=== PATIENT | male | born 1985 | race Caucasian/White ===

== ENCOUNTER → 2020-07-11 11:55 | Outpatient (BNVA) | payer BC, SELFPAY | PROVIDERS: Family Provider Family Medicine; Visit Provider Nurse Practitioner | DX: S60.221A Contusion of right hand, initial encounter (principal); W01.0XXA Fall on same level from slipping, tripping and stumbling without subsequent striking against object, initial encounter | CPT/HCPCS: 73130 ==

== ENCOUNTER 2024-12-21 12:10 | Emergency (ER) | payer OTHER, SELFPAY ==
[2024-12-21] VITALS (9 sets, daily range): BP systolic 160; BP diastolic 105; PULSE 73–84; RESP 13–18; TEMP 36.7; O2SAT 92–98
--- NOTE | 2024-12-21 12:24 | ECG_ITS ---
[facility] Test Date: 2024-12-21 Pat Name: Hank Lamar Department: Room: Gender: Male [employer]: : 1985 Requested By: Syeda Horn Order Number: [id number] Reading MD: JACQUELINE DORSEY Measurements Intervals [place] Rate: 74 P: 21 WI: 159 QRS: 93 QRSD: 98 T: -11 QT: 358 QTc: 398 Interpretive Statements SINUS RHYTHM BORDERLINE RIGHT AXIS DEVIATION [QRS AXIS > 90] LOW QRS VOLTAGE IN PRECORDIAL LEADS [QRS DEFLECTION < 1.0 mV IN CHEST LEADS] NONSPECIFIC T-WAVE ABNORMALITY No previous ECG available for comparison Electronically Signed On 12-23-2024 23:37:33 PATIENT FINANCIAL REPRESENTATIVE by JACQUELINE DORSEY [email or web address]
--- NOTE | 2024-12-21 12:55 | CTR_ITS ---
PROCEDURE INFORMATION: Exam: CTA Chest With Contrast Exam date and time: 12/21/2024 1:26 PM Age: 39 years old Clinical indication: Abdominal pain; Generalized; Chest pressure; Additional info: Chest pain h/o pe, abdominal pain, gi bleeding TECHNIQUE: Imaging protocol: Computed tomographic angiography of the chest with contrast. Exam focused on the arteries. 3D rendering (Not supervised by radiologist): MIP and/or 3D reconstructed images were created by the technologist. Total images: 1634 Radiation optimization: All CT scans at this facility use at least one of these dose optimization techniques: automated exposure control; mA and/or kV adjustment per patient size (includes targeted exams where dose is matched to clinical indication); or iterative reconstruction. Contrast material: OMNIPAQUE 350; Contrast volume: 100 ml; Contrast route: INTRAVENOUS (IV); COMPARISON: No relevant prior studies available. RADIATION DOSE METRICS: Total DLP (mGy-cm): 1616.19 FINDINGS: Pulmonary arteries: Pulmonary artery evaluation of good technical quality with no pulmonary artery embolism identified. Aorta: Unremarkable. No aortic aneurysm. No aortic dissection. Lungs: Trace atelectasis or scar noted in the right lung base. 5 mm nodule posteriorly at the left lung base series 5, image 41. Pleural spaces: Unremarkable. No pneumothorax. No pleural effusion. Heart: Unremarkable. No cardiomegaly. No pericardial effusion. Lymph nodes: Unremarkable. No enlarged lymph nodes. Bones/joints: Unremarkable. No acute fracture. Soft tissues: There is nonspecific gynecomastia. CT Chest at 12 months. (Reference: [place]) REFERENCES: Josehocarmelo Jain, et al. Guidelines for Management of Incidental Pulmonary Nodules Detected on CT Images: From the Fleischner Society 2017. Radiology. 2017;284(1):228-243. PROCEDURE INFORMATION: Exam: CT Abdomen And Pelvis With Contrast Exam date and time: 12/21/2024 1:26 PM Age: 39 years old Clinical indication: Abdominal pain; Generalized; Chest pressure; Additional info: Chest pain h/o pe, abdominal pain, gi bleeding TECHNIQUE: Imaging protocol: Computed tomography of the abdomen and pelvis with contrast. Radiation optimization: All CT scans at this facility use at least one of these dose optimization techniques: automated exposure control; mA and/or kV adjustment per patient size (includes targeted exams where dose is matched to clinical indication); or iterative reconstruction. Contrast material: OMNIPAQUE 350; Contrast volume: 100 ml; Contrast route: INTRAVENOUS (IV); COMPARISON: No relevant prior studies available. RADIATION DOSE METRICS: Total DLP (mGy-cm): 1616.19 FINDINGS: Liver: Hepatic steatosis is evident. Gallbladder and biliary ducts: Normal. No calcified stones. No ductal dilation. Pancreas: Normal. No ductal dilation. Spleen: Normal. No splenomegaly. Adrenal glands: Normal. No mass. Kidneys and ureters: Normal. No hydronephrosis. Stomach and bowel: Unremarkable. No obstruction. No mucosal thickening. Appendix: No evidence of appendicitis. Intraperitoneal space: Unremarkable. No free air. No significant fluid collection. Vasculature: Incidental phleboliths noted. Lymph nodes: Unremarkable. No enlarged lymph nodes. Urinary bladder: Unremarkable as visualized. Reproductive: Unremarkable as visualized. Bones/joints: Unremarkable. No acute fracture. Soft tissues: Unremarkable. CT/CT angio chest w abd pel w con IMPRESSION: 1. No pulmonary artery embolism identified. 2. Trace atelectasis or scar noted in the right lung base. 3. 5 mm nodule posteriorly at the left lung base series 5, image 41. For patients at low risk (minimal or absent history of smoking and of other known risk factors), no routine follow-up is indicated. For patients at high risk (history of smoking or of other known risk factors), consider optional IMPRESSION: No active GI bleed.
[2024-12-21 13:23] LABS: Basophils % 0.6 %; Eosinophils # 0.1 10^3/uL (0.0-0.8); Eosinophils % 1.9 %; Hematocrit 46.5 % (37-53); Lymphocytes # 2.1 10^3/uL (0.8-4.8); Lymphocytes % 33.3 %; Mean Corpuscular HGB Conc 33.8 g/dL (30-55); Mean Corpuscular Hemoglobin 29.6 pg (27-33); Mean Corpuscular Volume 87.6 fl (82-101); Mean Platelet Volume 10.2 fL (7.4-10.4); Monocytes # 0.6 10^3/uL (0.2-0.9); Neutrophils # 3.43 10^3/uL (1.8-7.7); Nucleated Red Blood Cells % 0 %; Platelet Count 290 10^3/cmm (157-399); Red Blood Count 5.31 10^6/uL (3.85-5.65); Red Cell Distribution Width 12.4 % (12.1-15.1); White Blood Count 6.24 10^3/uL (3.29-11.43)
[2024-12-21] MEDS: iohexol 350 mg/mL 500 mL Btl (per mL) IV (13:29)
[2024-12-21 13:39] LABS: Alanine Aminotransferase 68 U/L (0-41); Albumin Level 4.4 g/dL (3.5-5.2); Alkaline Phosphatase 92 U/L (40-130); Anion Gap 13.7 (5-19); Aspartate Amino Transferase 28 U/L (0-40); Blood Urea Nitrogen 13 mg/dL (6-20); Calcium 9.4 mg/dL (8.5-10.5); Carbon Dioxide 26 mmol/L (22-29); Chloride 100 mmol/L (98-107); Creatinine Clr Calc Pharmacy 115.0586; Globulin 3.4 g/dL (1.3-4.6); Glomerular Filtration Rate 74.9 mL/min (90-130); Glucose 93 mg/dL (65-115); Osmolality Calculated 282 mOsm/kg (285-295); Potassium 3.7 mmol/L (3.5-5.1); Sodium 136 mmol/L (136-145); Total Bilirubin 0.3 mg/dL (0.15-1.2); Total Protein 7.8 g/dL (6.6-8.7)
--- NOTE | 2024-12-21 14:33 | W.ED.GIBLEED ---
HPI - GI Bleed General: Chief complaint: GI Bleed Stated complaint: (dr. mcdaniel) internal bleeding Time Seen by Provider: 12/21/24 12:46 History of Present Illness: This patient is a 39-year-old presenting with bright red blood per rectum x 2 this morning. He is currently on Xarelto after being diagnosed with a left lower extremity DVT and right sided pulmonary edema at the end of August. He was treated in the hospital with heparin and some antibiotics as he also had pneumonia at the same time. After discharge he was on Xarelto and has continued it since. He has not missed doses. He has noted some slightly increased ease of bruising but had not had any other bleeding issues until this morning. He denies abdominal pain, nausea, black stools. His episodes involved bright red blood in the toilet water. The stool itself appeared normal. He contacted his PCP who told him to come to the ER for further evaluation. Additionally he complains of increasing pain in his right posterior lateral rib area. He said this is where he had the pain with the PE itself. It has worsened over the past 4 days. He also continues to have pain in his left leg where he had the DVT. He has had an ultrasound recently that showed no DVT in the leg. There is no swelling and it has not worsened recently. He denies fevers, chills, cough. The antibiotics listed on his chart are from over a year ago and he has not had any antibiotics other than as previously mentioned in this HPI. Related Data Home Medications ?Medication ?Instructions ?Recorded ?Confirmed cholecalciferol (vitamin D3) 125 125 mcg PO DAILY 12/21/24 12/21/24 mcg (5,000 unit) tablet (Vitamin D3) folic acid-vit B6-vit B12 0.8 1 tab PO DAILY 12/21/24 12/21/24 mg-50 mg-100 mcg tablet (Homocysteine Formula) rivaroxaban 20 mg tablet (Xarelto) 20 mg PO DAILY 12/21/24 12/21/24 Allergies Allergy/AdvReac Type Severity Reaction Status Date / Time No Known Allergies Allergy Verified 12/21/24 12:23 [facility] ED PFSH: Social History Smoking and tobacco/nicotine status: never used tobacco/nicotine Physical Exam Const: COMMON NORMALS: no acute distress, patient oriented x3, no limitations and alert GENERAL APPEARANCE: cooperative and comfortable HENMT: HEAD & SCALP: normal to inspection FACE & SINUS: normal facial exam Eye: GENERAL EYE: appearance normal, both eyes and all related structures Neck/C-Spine: COMMON NORMALS: supple, no meningeal signs and no JVD Chest: COMMONS NORMALS: normal inspection of the chest Resp: COMMON NORMALS: normal respiratory effort, No use of accessory muscles and clear to auscultation bilaterally AUSCULTATION: clear to auscultation bilaterally Cardio: COMMON NORMALS: no JVD, regular rate, regular rhythm and No murmurs present (Cardio) RATE: regular rate RHYTHM: regular rhythm GI: COMMON NORMALS: Normal to inspection, nondistended, normoactive bowel sounds present and Soft to palpation INSPECTION: Yes normal to inspection AUSCULTATION: Yes normoactive bowel sounds PALPATION: Yes Soft to palpation and Yes Tenderness to palpation present (GI) (Mild, epigastric) Back/Pelvis: COMMON NORMALS: thoracic and lumbar spine normal to inspection Extremity: COMMON NORMALS: normal to inspection Neuro: COMMON NORMALS: patient oriented x3, moves all extremities, no focal motor deficits and no sensory deficits noted SENSORIUM/ORIENTATION: Yes alert MENINGEAL SIGNS: Yes no meningeal signs Psych: COMMON NORMALS: mental status grossly normal, cooperative and normal affect Skin: COMMON NORMALS: no rashes or lesions noted and turgor normal GENERAL SKIN EXAM: no rashes or lesions noted and turgor normal Course Vital Signs: Vital signs: Vital Signs Temperature 98.0 F 12/21/24 12:17 Pulse Rate 82 12/21/24 15:15 Respiratory Rate 13 12/21/24 15:15 Blood Pressure 160/105 12/21/24 12:17 Pulse Oximetry 98 12/21/24 15:15 Oxygen Delivery Me thod Room Air 12/21/24 12:17 MDM - GI Bleed Medical Decision Making Patient's description of the bleeding is most likely hemorrhoidal. His vitals are good. He feels fine. His hemoglobin is normal. His symptoms of increasing pain again where he had the PE symptoms previously is a little more concerning. He also had some tenderness on abdominal exam. He had a CT of the chest abdomen and pelvis with PE protocol done to rule out repeat pulmonary embolism. These were negative for acute findings. There is some atelectasis or fluid in the right base in the area of his discomfort. White count is normal. Note is made of a nodule in the left base which only requires follow-up if he is a smoker which he is not. We discussed these findings and my clinical assessment. If he will permit me to do a rectal exam I will make sure there is no other concerning physical finding but I suspect this is fairly benign hemorrhoidal bleeding. I do not think he should stop his blood thinner at this time unless he has increasing or ongoing bleeding. Lab Data 12/21/24 13:10 12/21/24 13:10 Radiology Impressions Chest/Abdomen/Pelvis CT 12/21/24 12:55 IMPRESSION: 1. No pulmonary artery embolism identified. 2. Trace atelectasis or scar noted in the right lung base. 3. 5 mm nodule posteriorly at the left lung base series 5, image 41. For patients at low risk (minimal or absent history of smoking and of other known risk factors), no routine follow-up is indicated. For patients at high risk (history of smoking or of other known risk factors), consider optional IMPRESSION: No active GI bleed. Laboratory Results WBC 6.24 10^3/uL (3.29-11.43) 12/21/24 13:10 RBC 5.31 10^6/uL (3.85-5.65) 12/21/24 13:10 Hgb 15.70 g/dL (11.27-16.99) 12/21/24 13:10 Hct 46.5 % (37-53) 12/21/24 13:10 MCV 87.6 fl (82-101) 12/21/24 13:10 MCH 29.6 pg (27-33) 12/21/24 13:10 MCHC 33.8 g/dL (30-55) 12/21/24 13:10 RDW 12.4 % (12.1-15.1) 12/21/24 13:10 Plt Count 290 10^3/cmm (157-399) 12/21/24 13:10 MPV 10.2 fL (7.4-10.4) 12/21/24 13:10 Neut % (Auto) 55.0 % 12/21/24 13:10 Lymph % (Auto) 33.3 % 12/21/24 13:10 [place] % (Auto) 9.0 % 12/21/24 13:10 Eos % (Auto) 1.9 % 12/21/24 13:10 Baso % (Auto) 0.6 % 12/21/24 13:10 Neut # (Auto) 3.43 10^3/uL (1.8-7.7) 12/21/24 13:10 Lymph # (Auto) 2.1 10^3/uL (0.8-4.8) 12/21/24 13:10 [place] # (Auto) 0.6 10^3/uL (0.2-0.9) 12/21/24 13:10 Eos # (Auto) 0.1 10^3/uL (0.0-0.8) 12/21/24 13:10 Baso # (Auto) 0.0 10^3/uL (0.0-0.1) 12/21/24 13:10 Nucleated RBC % (auto) 0 % 12/21/24 13:10 Nucleated RBCs # 0.0 /100WBC 12/21/24 13:10 Sodium 136 mmol/L (136-145) 12/21/24 13:10 Potassium 3.7 mmol/L (3.5-5.1) 12/21/24 13:10 Chloride 100 mmol/L (98-107) 12/21/24 13:10 Carbon Dioxide 26 mmol/L (22-29) 12/21/24 13:10 Anion Gap 13.7 (5-19) 12/21/24 13:10 BUN 13 mg/dL (6-20) 12/21/24 13:10 Creatinine 1.1 mg/dL (0.7-1.2) 12/21/24 13:10 GFR Calculation 74.9 mL/min (90-130) L 12/21/24 13:10 Glucose 93 mg/dL (65-115) 12/21/24 13:10 Calculated Osmolality 282 mOsm/kg (285-295) L 12/21/24 13:10 Calcium 9.4 mg/dL (8.5-10.5) 12/21/24 13:10 Total Bilirubin 0.3 mg/dL (0.15-1.2) 12/21/24 13:10 AST 28 U/L (0-40) 12/21/24 13:10 ALT 68 U/L (0-41) H 12/21/24 13:10 Alkaline Phosphatase 92 U/L (40-130) 12/21/24 13:10 Total Protein 7.8 g/dL (6.6-8.7) 12/21/24 13:10 Albumin 4.4 g/dL (3.5-5.2) 12/21/24 13:10 Globulin 3.4 g/dL (1.3-4.6) 12/21/24 13:10 Urine Color Yellow (Yellow) 12/21/24 15:30 Urine Appearance Clear (CLEAR) 12/21/24 15:30 Urine pH 5.5 (5-7) 12/21/24 15:30 Ur Specific [place] 1.055 (1.005-1.030) H 12/21/24 15:30 Urine Protein Negative (Negative) 12/21/24 15:30 Urine Glucose (UA) Negative (Normal) 12/21/24 15:30 Urine Ketones Negative (Negative) 12/21/24 15:30 Urine Blood Negative (Negative) 12/21/24 15:30 Urine Nitrate Negative (Negative) 12/21/24 15:30 Urine Bilirubin Negative (Negative) 12/21/24 15:30 Urine Urobilinogen 0.2 mg/dL (Negative) 12/21/24 15:30 Ur Leukocyte Esterase Negative (Negative) 12/21/24 15:30 Amorphous Sediment Not Reportable 12/21/24 15:30 All radiology interpretation(s) finalized by discharge Discharge Plan Discharge Patient Disposition: Home Clinical Impression: Hematochezia, Anticoagulated, Chest pain, Pleurisy Condition: Stable Prescriptions: No Action Homocysteine Formula 0.8-50-100 mg-mg-mcg Tablet 1 tab PO DAILY cholecalciferol (vitamin D3) [Vitamin D3] 125 mcg (5,000 unit) Tablet 125 mcg PO DAILY Xarelto 20 mg tablet 20 mg PO DAILY Discharge Orders: Discharge ED (Routine); Ordered 12/21/24 Ordered By: Syeda Strange Referrals: Vince Lopez MD [Family Provider] - Discharge Diet: Advance as tolerated Discharge Activity: Resume usual activity Patient Instructions: Opioid Safety, Pain Management Activity Restrictions/Additional Instructions: Follow-up with your primary care provider for further evaluation. Return to the ER if ongoing bleeding, blood in the stool or black tarry stools, chest pain, shortness of breath or other new concerns. Print Language: Japanese Coding Level of Care Code ED Certified Registered [employer] for [employer]
[2024-12-21 15:35] LABS: Add Urine Microscopic? NO
[2024-12-21 15:39] LABS: Bilirubin Urine Negative (Negative); Blood Urine Negative (Negative); Glucose Urine UA Negative (Normal); Ketones Urine Negative (Negative); Leukocyte Esterase Urine Negative (Negative); Nitrate Urine Negative (Negative); Protein Urine Negative (Negative); Urine Appearance Clear (CLEAR); Urine Color Yellow (Yellow); Urobilinogen Urine 0.2 mg/dL (Negative); pH Urine 5.5 (5-7)
[2024-12-21 15:44] LABS: Specific Gravity, Urine 1.055 (1.005-1.030)
[2024-12-21 15:45] LABS: Charge for UA Resulting for Rev
== END 2024-12-21 16:32 | disposition home or self-care (01) ==
PROVIDERS: Emergency Provider Emergency Medicine; Family Provider Family Medicine
DX: K92.1 Melena (principal); R07.9 Chest pain, unspecified; R09.1 Pleurisy; Z79.01 Long term (current) use of anticoagulants
CPT/HCPCS: 71275; 74177; 80053; 81003; 85025; 93005; 99285